=== PATIENT | female | born 1980 | race Caucasian/White ===

== ENCOUNTER 2020-10-04 05:43 | Emergency (ER) | payer OTHER ==
[2020-10-04 06:42] LABS: EOSINOPHIL 1.6 % (0-5); HCT 37.3 % (37.0-47.0); HGB 12.7 g/dl (12.5-16.0); LYMPHOCYTE 33.7 % (15-48); MCH 32.1 pg (25.0-31.0); MCV 94.2 fL (78.0-100.0); MONOCYTE 7.9 % (0-12); MPV 9.3 fL (6.0-9.5); NEUTROPHIL 55.5 % (41-80); NRBC 0; PLT 384 K/uL (150-400); RBC 3.96 M/uL (4.20-5.40); RDW 12.7 % (11.5-14.0); WBC 6.3 K/uL (4.0-10.5)
[2020-10-04 07:14] LABS: CREATININE 0.8 mg/dL (0.51-0.95); MAGNESIUM 1.9 mg/dL (1.8-2.4); POTASSIUM 4.2 mmol/L (3.5-5.1)
[2020-10-04] MEDS ORDERED: PERCOCET 5-3251 EACH PO (07:32)
[2020-10-04] MEDS ORDERED: CYCLOBENZAPRINE10 MG PO (07:32)
[2020-10-04] MEDS ORDERED: MOBIC7.5 MG PO (07:32)
[2020-10-04] MEDS ORDERED: MEDROL 4MG DOSEP4 MG PO (07:43)
== END 2020-10-04 08:40 | disposition home or self-care (01) ==
LOC: FER 05:43
PROVIDERS: Emergency Medicine Emergency Medical Services
DX: M54.12 Radiculopathy, cervical region (principal)
CPT/HCPCS: 36415; 80048; 83735; 84703; 85025; J1100; J1170; J1885; J2405; J2800; J3360; J7050; J7120

== ENCOUNTER 2020-11-26 10:25 | Emergency (ER) | payer OTHER ==
[~2020-11-26 10:25] MED LIST: CYCLOBENZAPRINE10 MG PO; MEDROL 4MG DOSEP4 MG PO; MOBIC7.5 MG PO; PERCOCET 5-3251 EACH PO
[2020-11-26 11:15] LABS: BASOPHIL 0.4 % (0-2); EOSINOPHIL 0.2 % (0-5); HCT 40.1 % (37.0-47.0); HGB 13.2 g/dl (12.5-16.0); LYMPHOCYTE 20.6 % (15-48); MCH 30.5 pg (25.0-31.0); MCHC 32.9 g/dL (32.0-36.0); MCV 92.6 fL (78.0-100.0); MONOCYTE 9.6 % (0-12); MPV 9.4 fL (6.0-9.5); NEUTROPHIL 68.7 % (41-80); NRBC 0; PLT 307 K/uL (150-400); RBC 4.33 M/uL (4.20-5.40); RDW 12.8 % (11.5-14.0); WBC 5.6 K/uL (4.0-10.5)
[2020-11-26 11:32] LABS: ALBUMIN 3.2 g/dL (3.4-5.0); BILIRUBIN - TOTAL 0.4 mg/dL (0.2-1.0); BUN/CREAT RATIO (CALC) 11.7 RATIO; CREATININE 0.6 mg/dL (0.51-0.95); GLOBULIN (CALCULATION) 3.8 g/dL; POTASSIUM 3.8 mmol/L (3.5-5.1)
[2020-11-26 11:37] LABS: LACTIC ACID 1.2 mmol/L (0.4-1.9)
== END 2020-11-26 15:00 | disposition home or self-care (01) ==
LOC: FER 10:25
PROVIDERS: Emergency Medicine
DX: U07.1 COVID-19 (principal); J12.82 Pneumonia due to coronavirus disease 2019
CPT/HCPCS: 36415; 71045; 71275; 80053; 83605; 84145; 85025; 85379; 87040; J7030; Q9967